=== PATIENT | female | born 1980 | race Caucasian/White ===

== ENCOUNTER 2022-04-26 08:37 | Emergency (ER) | payer BC, SELFPAY ==
--- NOTE | 2022-04-26 08:44 | ED.URI ---
HPI - URI/Sore Throat General Chief Complaint: Upper Respiratory Infection Stated Complaint: Sore throat Time Seen by Provider: 04/26/22 08:51 Source: patient Mode of arrival: ambulatory Limitations: no limitations History of Present Illness HPI Narrative: Ms. Freedman is a 42-year-old female patient presenting to the clinic today with sore throat x1 week. She is also reports that she is has a nonproductive cough and nasal congestion. She reports that she feels as though her uvula swelling she denies any fever or chills but has had some hot flashes. She did not test herself for COVID. No known exposure to anybody with COVID, strep, or influenza Related Data Home Medications Medication Instructions Recorded Confirmed dextroamphetamine-amphetamine ER 20 mg PO DAILY 04/26/22 04/26/22 20 mg 24hr capsule,extend release fluticasone propionate 110 1 puff inhalation DAILY 04/26/22 04/26/22 mcg/actuation HFA aerosol inhaler (Flovent HFA) lamotrigine 25 mg tablet 25 mg PO DAILY 04/26/22 04/26/22 quetiapine 300 mg tablet 300 mg PO DAILY 04/26/22 04/26/22 Allergies Allergy/AdvReac Type Severity Reaction Status Date / Time morphine Allergy Itching Verified 04/26/22 09:01 acetaminophen [From Vicodin] AdvReac Itching Verified 04/26/22 09:01 hydrocodone [From Vicodin] AdvReac Itching Verified 04/26/22 09:01 Review of Systems Review of Systems: Pertinent positives per HPI. Patient denies any fever, chills, rash, headache, visual changes, dizziness, shortness of breath, chest pain, palpitations, nausea, vomiting, diarrhea, constipation, abdominal pain, or any urinary issues. PMFSH Comments At the time of my signature, I reviewed and agree with the nursing past medical, surgical, social, and family history. There is no relevant family history pertinent to the patient complaint. Exam Narrative: General: Well-developed, well nourished, in no apparent distress Head: Normocephalic, atraumatic Eyes: Pupils equally round and reactive to light bilaterally, EOM intact, sclera and conjunctive clear, no discharge, lids normal Ears: TMs intact and clear, ear canals clear, no drainage, grossly hearing normal. Nose: Nares patent, clear nasal discharge, moderate inflammation, no sinus tenderness. Mouth: Oropharynx without lesions or masses, good dentition, MMM. Oropharynx red with uvula swelling Neck: Supple, trachea midline, no enlargement of anterior or posterior cervical nodes, no thyroid masses or goiter palpable. Cardio: Regular rate and rhythm, s1 and s2 normal, no murmur appreciated. Resp: Clear to auscultation bilaterally anteriorly and posteriorly, no rhonchi, rales, wheezing or rubs Course Course Emergency Course: Portions of this record may have been created with voice recognition software. Level of Care: Express Care Visit Vital Signs Vital signs: Vital signs reviewed MDM - URI/Sore Throat MDM Narrative Medical decision making narrative: At the time of visit patient is resting comfortably on the exam table. Strep screen was obtained and was negative in the clinic. I suspect the patient has URI, postnasal drip, pharyngitis. I will put her on a prescription for some prednisone to help with the inflammation and the congestion. Supportive measures were discussed with the patient she voiced understanding of discharge instructions and agrees to the treatment plan. Differential Diagnosis Differential diagnosis: Likely upper respiratory infection, otitis media, sinusitis, viral infection, bronchitis, influenza, pharyngitis and other (COVID) Discharge Plan Discharge Clinical Impression: Pharyngitis, PND (post-nasal drip), Upper respiratory infection Patient Disposition: Home, Self-Care Condition: Stable Instructions: Antibiotic Form, Pharyngitis (ED), Cold Symptoms (ED), Postnasal Drip (DC) Additional Instructions: Strep screen negative in the clinic. We will send for culture. Take prescription medica
[2022-04-26 08:51] VITALS: BP 130/90; PULSE 100; RESP 18; TEMP 36.6; O2SAT 99
[2022-04-26 08:58] VITALS: BP 130/90; PULSE 100; RESP 18; TEMP 36.6; O2SAT 99
== END 2022-04-26 09:10 | disposition home or self-care (01) ==
PROVIDERS: Emergency Provider Nurse Practitioner Family; PCP Physician Assistant
DX: J02.9 Acute pharyngitis, unspecified (principal); R09.82 Postnasal drip; J06.9 Acute upper respiratory infection, unspecified; F31.9 Bipolar disorder, unspecified
CPT/HCPCS: 87081; 87880; 99213; G0463

== ENCOUNTER 2023-05-02 06:46 | Inpatient (IN) | payer BC, SELFPAY ==
[2023-05-02] VITALS (20 sets, daily range): BP systolic 75–122; BP diastolic 54–91; PULSE 98–110; RESP 12–26; TEMP 35.9–36.6; O2SAT 92–98
--- NOTE | ~2023-05-02 | US_ITS ---
EXAMINATION: US renal BI DATE: 05/05/2023 12:03 INDICATION: Acute kidney injury. TECHNIQUE: Multiple ultrasound grayscale images of the kidneys were obtained. COMPARISON: CT 05/02/2023 FINDINGS: The right kidney measures 10.6 x 4.1 x 4.6 cm. The left kidney measures 8.4 x 5.8 x 6.06 cm. The kid neys demonstrate normal parenchymal echogenicity. There is no hydronephrosis. The bladder is decompre ssed by a Pizano catheter. There is a small volume of ascites. IMPRESSION: 1. Mild atrophy of left kidney. No hydronephrosis. 2. Small volume of ascites. Reviewed, dictated and finalized at location A.
--- NOTE | ~2023-05-02 | XR_ITS ---
EXAMINATION: XR chest 1V portable DATE: 05/03/2023 04:14 INDICATION: Intubation. COVID-19 positive. TECHNIQUE: A single frontal view of the chest was obtained. COMPARISON: Chest single view 05/02/2023 FINDINGS: There are airspace and interstitial opacities throughout the lungs bilaterally. No pleural effusion or pneumothorax. The heart size is normal. The endotracheal tube tip is in the right mainste m bronchus. The nasogastric tube tip is in the stomach. IMPRESSION: 1. Stable diffuse lung disease, consistent with pulmonary edema versus atypical pneumonia. 2. Endotracheal tube tip in the right mainstem bronchus. The tube has since been retracted. Reviewed, dictated and finalized at location A. IMPRESSION: 1. Stable diffuse lung disease, consistent with pulmonary edema versus atypical pneumonia. 2. Endotracheal tube tip in the right mainstem bronchus. The tube has since bee n retracted.
--- NOTE | ~2023-05-02 | XR_ITS ---
EXAMINATION: XR chest 1V portable DATE: 05/03/2023 20:43 INDICATION: COVID. Desaturations. Unresponsive. TECHNIQUE: frontal view of the chest was obtained. COMPARISON: Chest radiograph dated 05/03/2023 FINDINGS: Endotracheal tube tip 2.7 cm above the anglea. Nasogastric tube extends below the left hemidiaphragm with distal tip collimated off the study. Left internal jugular central venous catheter with distal tip in the region of the brachiocephalic vein. Increasing density of the prior diffuse groundglass opacities with perihilar air bronchograms. No pne umothorax. Small pleural effusions are not excludable. Heart size is normal. IMPRESSION: 1. Increasing diffuse bilateral lung disease which could represent pneumonia or moderate to severe pu lmonary edema. Superimposed small bilateral pleural effusions are also not excludable. Reviewed, dictated and finalized at location A. IMPRESSION: 1. Increasing diffuse bilateral lung disease which could represent pneumonia or moderate to severe pulmonary edema. Superimposed small bilateral pleural effus ions are also not excludable.
--- NOTE | ~2023-05-02 | CT_ITS ---
EXAMINATION: CT brain wo con DATE: 05/02/2023 11:31 INDICATION: Altered mental status. TECHNIQUE: Computed tomography (CT) of the head was performed without intravenous contrast. The mA wa s adjusted according to patient size. Iterative reconstruction technique was employed. The dose-lengt h product was 983.67 mGy-cm. COMPARISON: None FINDINGS: There is no intracranial hemorrhage, acute infarction, or abnormal intracranial mass lesion . The ventricles are normal in size. The orbits are normal. There is mucosal thickening in the parana luca sinuses. There is a trace right mastoid effusion. IMPRESSION: 1. Normal brain. Reviewed, dictated and finalized at location A. IMPRESSION: 1. Normal brain.
--- NOTE | ~2023-05-02 | XR_ITS ---
EXAMINATION: XR chest port-a-cath/central DATE: 05/03/2023 06:32 INDICATION: Central line placement. TECHNIQUE: A single frontal view of the chest was obtained. COMPARISON: Chest single view at 3:41 AM, chest CT 05/02/2023 FINDINGS: There are airspace opacities and septal thickening throughout the lungs bilaterally. No ple ural effusion or pneumothorax. The heart size is normal. The endotracheal tube tip is 1.4 cm above ca selena. The nasogastric tube tip is in the stomach. A left internal jugular central venous catheter is seen with tip in the left brachiocephalic vein. IMPRESSION: 1. Central line tip in the left brachiocephalic vein. 2. Stable diffuse lung disease, consistent with pulmonary edema versus atypical pneumonia. Reviewed, dictated and finalized at location A.
--- NOTE | ~2023-05-02 | CT_ITS ---
EXAMINATION: CTA chest PE abdomen pel DATE: 05/02/2023 09:18 INDICATION: Shortness of breath. TECHNIQUE: Computed tomography angiography (CTA) of the chest was performed with 100 mL Omnipaque-350 intravenous contrast timed to evaluate the pulmonary arteries. Coronal maximum intensity projection 3D-reconstructions were created by the technologist. Computed tomography (CT) of the abdomen and pelv is was performed with intravenous contrast. Automated exposure control and iterative reconstruction t echnique were employed. The dose-length product was 553.22 mGy-cm. COMPARISON: None. FINDINGS: CTA chest: There are patchy patchy groundglass opacities and crazy paving involving all lobes. A calc ified left lung nodule and calcified paraesophageal lymph node are consistent with old granulomatous disease. There is mild emphysema. No pleural effusion. The heart size is normal. No pericardial effus ion. There is no pulmonary embolus. There is mild thoracic spondylosis. There is an old healed fractu re of the sternum. CT abdomen and pelvis: There is diffuse hepatic steatosis. There is diffuse heterogeneity of liver at tenuation. The gallbladder is normal in size. Gallbladder wall thickening is likely secondary to inte rstitial edema. The spleen is normal. Paraesophageal varices are noted. There are calcifications in t he pancreas, consistent with chronic pancreatitis. The adrenal glands and kidneys are normal. There i s wall thickening of small bowel and colon. There is a moderate volume of ascites. Body wall edema is noted. There is mild lumbar spondylosis. IMPRESSION: 1. Diffuse lung disease, likely moderate pulmonary edema. Atypical pneumonia is less likely. 2. Moderate volume of ascites. 3. Wall thickening of small and large bowel, likely interstitial edema. Enterocolitis is less likely. 4. Diffuse hepatic steatosis. Heterogeneity of the liver is suspicious for cirrhosis. 5. Paraesophageal varices. 6. No pulmonary embolus. Reviewed, dictated and finalized at location A. IMPRESSION: 1. Diffuse lung disease, likely moderate pulmonary edema. Atypical pneumonia is less likely. 2. Moderate volume of ascites. 3. Wall thickening of small and large bowel, likely interstitial edema. Enteroc olitis is less likely. 4. Diffuse hepatic steatosis. Heterogeneity of the liver is suspicious for cirr hosis. 5. Paraesophageal varices. 6. No pulmonary embolus.
--- NOTE | ~2023-05-02 | XR_ITS ---
EXAMINATION: XR chest 1V portable DATE: 05/04/2023 05:01 INDICATION: Respiratory failure. TECHNIQUE: A single frontal view of the chest was obtained. COMPARISON: Chest single view 05/03/2023 FINDINGS: There are airspace opacities throughout the lungs bilaterally. There is a small left pleura l effusion. No pneumothorax. The heart size is obscured. The endotracheal tube tip is 2.6 cm above th e angela. The nasogastric tube tip is in the stomach. A left internal jugular central venous catheter is seen with tip in the left brachiocephalic vein. IMPRESSION: 1. Worsened diffuse lung disease, consistent with pulmonary edema versus pneumonia versus acute respi ratory distress syndrome (ARDS). 2. Stable small left pleural effusion. Reviewed, dictated and finalized at location A. IMPRESSION: 1. Worsened diffuse lung disease, consistent with pulmonary edema versus pneumo velia versus acute respiratory distress syndrome (ARDS). 2. Stable small left pleural effusion.
--- NOTE | ~2023-05-02 | XR_ITS ---
EXAMINATION: XR chest 1V portable DATE: 05/05/2023 05:54 INDICATION: Respiratory failure. TECHNIQUE: A single frontal view of the chest was obtained. COMPARISON: Chest single view 05/04/2023 FINDINGS: There are airspace opacities throughout the lungs bilaterally with air bronchograms. There are small pleural effusions. No pneumothorax. The heart size is obscured. The nasogastric tube tip is in the stomach. The endotracheal tube tip is 2.8 cm above the angela. A left internal jugular centra l venous catheter is seen with tip in the left brachiocephalic vein. IMPRESSION: 1. Severe diffuse lung disease with worsening at the lung apices, consistent with pulmonary edema tom talia pneumonia versus acute respiratory distress syndrome (ARDS). 2. Worsened small pleural effusions. Reviewed, dictated and finalized at location A. IMPRESSION: 1. Severe diffuse lung disease with worsening at the lung apices, consistent wi th pulmonary edema versus pneumonia versus acute respiratory distress syndrome (ARDS). 2. Worsened small pleural effusions.
--- NOTE | ~2023-05-02 | XR_ITS ---
EXAMINATION: XR chest 1V portable DATE: 05/02/2023 07:34 INDICATION: Shortness of breath. TECHNIQUE: A single frontal view of the chest was obtained. COMPARISON: None. FINDINGS: There is a diffuse interstitial pattern in the lungs. There are airspace opacities in all l eft lung zones. No pleural effusion or pneumothorax. The heart size is normal. IMPRESSION: 1. Diffuse lung disease, consistent with pulmonary edema versus pneumonia. Reviewed, dictated and finalized at location A.
--- NOTE | 2023-05-02 06:52 | ECG_ITS ---
Measurements Intervals [place] Rate: 108 P: 80 RI: 165 QRS: 93 QRSD: 77 T: 27 QT: 247 QTc: 331 Interpretive Statements SINUS TACHYCARDIA BORDERLINE RIGHT AXIS DEVIATION [QRS AXIS > 90] NONSPECIFIC T-WAVE ABNORMALITY ABNORMAL RHYTHM ECG NO PREVIOUS ECG AVAILABLE FOR COMPARISON Electronically Signed On 05-02-2023 7:18:21 CDT by Cory Vega M.D.
--- NOTE | 2023-05-02 06:57 | ED.SOB ---
HPI - SOB/Dyspnea General Chief Complaint: Shortness of Breath/Dyspnea Stated Complaint: cough Time Seen by Provider: 05/02/23 06:51 Source: patient Limitations: intoxication History of Present Illness HPI Narrative: Patient is a 43-year-old female present to the emergency department for multiple complaints. Patient states she took some psychedelic mushrooms earlier today she in addition she smokes some marijuana and overall she has been feeling anxious which she has chronic anxiety noting that she saw her sister recently and her sister told her that her stomach appeared to be more protuberant but has been progressively getting to the point over days she has a history of needing a drain to her abdomen many years ago but has not had any tap since then and overall she is feeling more short of breath over the past approximately 1 week. Patient denies any fevers, abdominal pain, diarrhea, constipation, melena, medic easier, dysuria, hematuria, urinary frequency, urinary urgency, cough, chest pain, numbness, weakness, recent injuries, recent illness, rash. Patient notes that she also uses methamphetamine occasionally via smoking and denies any history of IV drug use and her last use was approximately 3 days ago. Patient notes that she does have a history of alcohol use but did not drink any alcohol yesterday as she knew that she was going to take shrooms today. Patient has not noticed anything making her shortness of breath better or worse. Patient admits to some mild associated anxiety. Patient denies visual hallucinations, auditory hallucinations, tactile hallucinations. Patient denies suicidal ideations or homicidal ideations. Patient notes that she took the illicit drugs for pleasure. Patient admits to a history of seeing a cardiac specialist when she had her abdomen drained but she has not seen a cardiac specialist in many years. MD elicited complaint: shortness of breath Timing: progressively worsening Severity: mild Relieving factors: nothing Treatment prior to arrival: none Related Data Home Medications Medication Instructions Recorded Confirmed dextroamphetamine-amphetamine ER 20 mg PO DAILY 04/26/22 05/02/23 20 mg 24hr capsule,extend release quetiapine 300 mg tablet 400 mg PO HS 04/26/22 05/02/23 hydroxyzine pamoate 50 mg capsule 50 mg PO TID PRN Anxiety 05/02/23 05/02/23 lamotrigine 150 mg tablet 150 mg PO DAILY 05/02/23 05/02/23 sertraline 100 mg tablet 100 mg PO DAILY 05/02/23 05/02/23 Allergies Allergy/AdvReac Type Severity Reaction Status Date / Time morphine Allergy Itching Verified 04/26/22 09:01 acetaminophen [From Vicodin] AdvReac Itching Verified 04/26/22 09:01 hydrocodone [From Vicodin] AdvReac Itching Verified 04/26/22 09:01 PMFSH Past Medical History Medical History (Updated 05/05/23 @ 12:18 by Shelly Sifuentes MD) Alcoholism Chronic pancreatitis Cirrhosis COVID Polysubstance abuse Surgical History Surgical History (Updated 05/02/23 @ 17:17 by Briana Boykin NP) H/O Whipple procedure Family History Family History (Updated 05/02/23 @ 17:20 by Briana Boykin NP) Sibling Chronic pancreatitis Father Hypertension Social History Social History (Updated 05/02/23 @ 17:19 by Briana Boykin NP) Social History: She is single. Is reported that she works for [employer]. Marissa Mckay is her sister listed as her durable poa. She does not have any children and has never been . She lives with her sister Day. According to her sister Day the patient may have 1 drink a day. She did not quantify the size of the drink. Code status full code Smoking status: Unknown if ever smoked Alcohol intake: current Drinks per week: 1 Substance use: current Substance use type: marijuana Spiritual care concerns: No Comments Patient admits to occasional tobacco use. Patient admits to occasional alcohol consumption with a history of
[2023-05-02] MEDS: LACTATED RINGERS 1,000 ML 999 ML IV CONT (07:36)
[2023-05-02] MEDS: LORazepam INJ (*CRX) 2 MG/ML VIAL 0.5 MG IV PUSH (07:36)
[2023-05-02] MEDS: ASPIRIN 325 MG TABLET PO (07:36)
[2023-05-02 07:51] LABS: Basophils Absolute Auto 0.1 K/mm3 (0.0-0.1); Basophils Percent Auto 0.3 % (0.2-1.2); Eosinophils Percent Auto 0.1 % (0-4.4); Hematocrit 24.3 % (37.0-47.0); Hemoglobin 8.3 g/dL (12.0-15.0); Immature Granulocyte Absolute 0.16 K/mm3 (0.00-0.031); Immature Granulocyte Percent A 0.7 % (0-0.5); Immature Platelet Fraction Pct 11.7 % (0.9-11.2); Lymphocytes Absolute Auto 3.58 K/mm3 (0.9-3.2); Lymphocytes Percent Auto 16.7 % (18.3-44.2); Mean Corpuscular HGB Conc 34.2 g/dl (32-36); Mean Corpuscular Hemoglobin 33.6 pg (26-34); Mean Corpuscular Volume 98.4 fl (80-100); Mean Platelet Volume 13.1 fl (7.4-10.4); Monocytes Percent Auto 9.5 % (2.6-8.5); Neutrophils Absolute Auto 15.6 K/mm3 (1.3-6.7); Neutrophils Percent Auto 72.7 % (45.5-73.1); Platelet Count Result 87 k/mm3 (150-375); Red Blood Count 2.47 M/mm3 (4.2-5.4); Red Cell Distribution Width 17.2 % (11.5-14.5); White Blood Count 21.5 K/mm3 (4.5-10.0)
[2023-05-02 08:00] LABS: INR 1.7
[2023-05-02 08:01] LABS: Partial Thromboplastin Time 38.1 SECONDS (22.3-36.8)
[2023-05-02 08:05] LABS: Anisocytosis 1+ (NORMAL); Platelet Estimate Decreased (Adequate)
[2023-05-02 08:06] LABS: D Dimer 3.33 ug/mL (<0.48); Schistocytes None Seen (NORMAL); Target Cells 1+ (NORMAL)
[2023-05-02 08:07] LABS: Alanine Aminotransferase 33 U/L (6-35); Albumin Level 2.3 g/dL (3.5-5.1); Alkaline Phosphatase 151 U/L (38-126); Anion Gap 8 mmol/L (8-16); Aspartate Amino Transferase 70 U/L (14-36); Bilirubin,Total 2.1 mg/dL (0.2-1.3); Blood Urea Nitrogen 11 mg/dL (7-17); Calcium 7.4 mg/dL (8.4-10.2); Carbon Dioxide 23 mmol/L (22-30); Chloride 94 mmol/L (98-107); Estimated CRCL calculation 63 ml/min; Estimated Glomerular Filt Rate > 60; Glucose 107 mg/dL (65-110); Potassium 3.7 mmol/L (3.4-5.0); Sodium 125 mmol/L (137-145)
[2023-05-02 08:18] LABS: NT Pro B Type Natriuretic Pept 1170 pg/mL (19.9-100); Troponin I < 0.012 ng/mL (0.000-0.034)
[2023-05-02 09:14] LABS: Ammonia 63 umol/L (9-30); Lactic Acid Reflex 3.8 mmol/L (0.7-2.0)
[2023-05-02] MEDS: AZITHROMYCIN 500 MG/NS 250 ML 500 MG/250 ML BAG 250 MG IVPB (09:36)
--- NOTE | 2023-05-02 09:37 | PC.NURSE ---
pt mumbling incoherently on stretcher. when asked who she was talking to pt responds my sister . pt informed that she is alone in room.
[2023-05-02 09:55] LABS: CRP 6.3 mg/dL (<1.0)
[2023-05-02 11:18] LABS: Acetaminophen < 10 ug/mL (10-30); Salicylate < 1.0 mg/dL (2-20)
[2023-05-02 11:51] LABS: Influenza A QL RT-PCR Negative (Negative); Influenza B QL RT-PCR Negative (Negative); SARS-CoV-2 RNA PCR Positive (Negative)
[2023-05-02 11:52] LABS: Appearance Urine Cloudy (Clear); Bacteria Urine 4+ /hpf; Bilirubin Urine 1+ (Negative); Blood Urine Negative (Negative); Color Urine Dark Yellow (Yellow); Glucose Urine UA Negative (Negative); Ketones Urine Negative (Negative); Leukocyte Esterase Ur Trace LEU/UL (Negative); Need Manual Microscopic Reviewed; Nitrate Urine Negative (Negative); Protein Urine Negative (Negative); Specific Grav Ur 1.011 (1.001-1.035); Squamous Epithelial Cell Urine Few /hpf (Few); WBC Urine 0-5 /hpf
[2023-05-02 11:59] LABS: Reflex Lactic Acid Yes or No Add Lactic
[2023-05-02 12:04] LABS: Add Urine Microscopic? YES
[2023-05-02] MEDS: LACTATED RINGERS 500 ML 999 ML IV CONT (12:56)
[2023-05-02] MEDS: metroNIDAZOLE 500 MG/ISO 100ML 500 MG/100 ML BAG 100 MG IVPB ×2 (12:57→17:12)
--- NOTE | 2023-05-02 14:27 | PM.IMHP ---
H&P: HPI History of Present Illness Date/Time: 05/02/23 14:27 Chief Complaint: Shortness of breath Narrative: This is a 43-year-old female patient who appears older than stated age. The patient is rolling around in the bed calcium and is not answering questions for me. The patient told the ER that she took some psychedelics mushrooms earlier today she has been feeling anxious lately. The patient has been feeling more short of breath over the last week. She denied any fever chills or any nausea vomiting or diarrhea. She denied any urinary symptoms. No chest pain or palpitations. The patient is noted to use methamphetamines via smoking and history of IV drug use and her last usage was approximately 3 days ago. She also has a history of alcoholism. She did drink today because she knew she was going to take some mushrooms today. The patient has been coughing up thick sputum. She denies any visual hallucinations or auditory hallucinations or tactile hallucinations. She denies any suicidal ideations. Patient was noted to take these illicit drugs for pleasure. The patient has a history of having a paracentesis in the past however she has not seen a GI specialist in many years. The patient is having difficulty focusing on answering my questions. The patient requested that I get out of her room and turned off the lights. Her white count was found to be 21.5 H&H is 8.3 and 24.3. Platelet count is 87. Her sodium is 125. Lactic acid 3.8. Calcium 7.4. Ammonia level 63. C reactive protein 6.3. BNP 1170. Albumin 2.3. Urine is cloudy with 6-10 rbc's and 4+ bacteria. Solicited aids were less than 1.0 and Tylenol level less than 10. Influenza A/B urine negative but she is positive for COVID. The patient was given Rocephin azithromycin and Flagyl. Head CT was read as normal brain. Chest abdominal pelvis CT was read as the following. Diffuse lung disease, likely moderate pulmonary edema. Atypical pneumonia is less likely. 2. Moderate volume of ascites. 3. Wall thickening of small and large bowel, likely interstitial edema. Enterocolitis is less likely. 4. Diffuse hepatic steatosis. Heterogeneity of the liver is suspicious for cirrhosis. 5. Paraesophageal varices. 6. No pulmonary embolus. The patient is being admitted to observation status on the date of service of 05/02/2023 Review of Systems Review of Systems: All systems reviewed & are unremarkable except as noted in HPI and below Constitutional: Constitutional: Reports as per HPI and Reports no additional constitutional complaints Eyes: Eyes: Reports as per HPI and Reports no additional eye complaints ENT: Reports system reviewed and no additional complaints, except as documented and Reports Normal hearing present Cardiovascular: Cardiovascular: Reports no additional cardiovascular complaints Respiratory: Respiratory: Reports no additional respiratory complaints and Reports no additional respiratory complaints Gastrointestinal: Gastrointestinal: Reports as per HPI and Reports no additional gastrointestinal complaints Musculoskeletal: Musculoskeletal: Reports no additional musculoskeletal complaints Integumentary/Breasts: Skin/Breast: Reports system reviewed and no additional complaints, except as docu and Reports as per HPI Neurologic: Reports system reviewed and no additional complaints, except as documented, Reports as per HPI and Reports Normal hearing present Psychiatric: Psychiatric: Reports no additional psychiatric complaints and Reports as per HPI Endocrine: Endocrine: Reports no additional endocrine complaints Hematologic/Lymphatic: Hematologic/Lymphatic: Reports no additional hematologic/lymphatic complaints Allergic/Immunologic: Allergic/Immunologic: Reports no additional allergic/immunologic complaints [facility] Past Medical History Medical History (Updated 05/02/23 @ 17:17 by Briana Boykin NP) Alcoholism Chronic pancreatitis Cirrhosis COVID Polysubstance abuse
--- NOTE | 2023-05-02 16:19 | ADMGEN ---
This patient, Ledy Mckay, was admitted to IMU Room 231-01 @[id number]. Patient/family oriented to hospital policies and general routines including ID bracelet, bed and alarms, visiting hours, pain management, procedures, bathroom and other care routines, personal items, smoking policy, room service/diet, and visiting hours. Information on how to activate the Rapid Response Team has been discussed. Patient/Family are encouraged to report perceived risks to care and to ask questions if they do not understand what they are told or what they should do.
[2023-05-02] MEDS: LORazepam INJ (*CRX) 2 MG/ML VIAL IV PUSH (17:09)
[2023-05-02] MEDS: DEXAMETHASONE SOD PHOS INJ 4 MG/ML VIAL 6 MG IV PUSH (17:10)
[2023-05-02] MEDS: SODIUM CHLORIDE 0.9% IV 1,000 ML 100 ML IV CONT (17:12)
[2023-05-02] MEDS: LACTULOSE ENEMA 200 GM/1,000 ML ENEMA RECTAL (17:45)
[2023-05-02 18:09] LABS: Alveolar/Arterial O2 Gradient 259.7 mmHg; Base Excess ABG -0.7 mEq/l (+/-2.0); Fractional Inspired Oxygen 52 %; HCO3 ABG 23.6 mEq/l (22.0-26.0); Oxygen Content ABG 12.3 %vol (16.0-22.0); Oxygen Saturation ABG 94.2 % (95.0-100.0); Oxyhemoglobin 91.4 % THb (90.0-100.0); PCO2 ABG 37.6 mmHg (35.0-45.0); PO2 FiO2 Ratio Arterial Blood 1.33 %; Total Hemoglobin 9.5 g/dL (12.0-18.0); pH ABG 7.416 (7.350-7.450)
[2023-05-02 18:10] LABS: Device NASAL CANNULA; Modified Allen's Test Pass; Site Drawn LEFT RADIAL
[2023-05-02 18:22] LABS: Glucose Point of Care 115 mg/dl (65-105)
[2023-05-02 18:30] LABS: Albumin Level 1.9 g/dL (3.5-5.1)
[2023-05-02 18:33] LABS: Lactic Acid 2.6 mmol/L (0.7-2.0)
[2023-05-02 18:40] LABS: Barbiturate Screen Urine Negative (Negative); Benzodiazepines Screen Urine Negative (Negative)
[2023-05-02 18:41] LABS: Cannabinoid Screen Urine Positive (Negative); Cocaine Screen Urine Negative (Negative); Methadone Screen Urine Negative (Negative); Opiate Screen Urine Negative (Negative); Phencyclidine Screen Urine Negative (Negative)
[2023-05-02 18:58] LABS: Amphetamine Screen Urine Positive (Negative)
[2023-05-02 20:32] LABS: Sodium Urine Random < 5 meq/L
[2023-05-02 20:49] LABS: Lipase < 10 U/L (23-300)
--- NOTE | 2023-05-02 23:26 | PC.NURSE ---
Patient moaning, almost grunting not taking breaths in. pulse ox dropping, respiratory therapy called. Airvo started per RT. pulse ox 90 to 100%. Patient restless when care given. not opening her eyes, slurred, garbled yelling and cussing without moving her mouth. pupils equal, little reaction to light. no accomadation. Spoke with Briana Boykin regarding mental status, respiratory status, medications, etc.
[2023-05-02 23:54] LABS: Glucose Point of Care 102 mg/dl (65-105)
[2023-05-03] VITALS (29 sets, daily range): BP systolic 69–111; BP diastolic 46–70; PULSE 87–111; RESP 18–33; TEMP 35.8–36.6; O2SAT 86–100; BMI 20.9
[2023-05-03] MEDS: metroNIDAZOLE 500 MG/ISO 100ML 500 MG/100 ML BAG 100 MG IVPB ×2 (00:36→07:00)
[2023-05-03] MEDS: SUCCINYLCHOLINE CHLORIDE 20 MG/ML 10 ML VIAL 50 MG IV PUSH (03:21)
[2023-05-03] MEDS: ETOMIDATE 20 MG/10 ML AMPUL 15 MG IV PUSH (03:22)
[2023-05-03] MEDS: ETOMIDATE 20 MG/10 ML AMPUL 5 MG IV PUSH (03:25)
[2023-05-03] MEDS: MIDAZOLAM 100MG/NS 100ML(*CRX) 100 MG/100 ML BAG IV CONT (03:40)
[2023-05-03] MEDS: FENTANYL 2,500MCG/NS250ML(*CRX 2,500 MCG/250 ML BAG 7.5 MCG IV CONT (03:40)
--- NOTE | 2023-05-03 04:00 | PC.NURSE ---
Patient's oxygen saturation dropped. patient fighting restraints, cussing, spitting. Respiratory therapy called. Dr. Wei notified and came to see patient. Received orders to move to ICU. Transferred to ICU room 11. Verbal report given at bedside to Michelle CAMPBELL. Patient's sibling Marissa Mckay notified. Marissa states she is in the ED here at [place] currently and will call back after her blood is drawn.
--- NOTE | 2023-05-03 04:10 | PC.NURSE ---
Verbal consent for Central line placement received from Marissa Mckay. Verified by Ariella Montanez RN
--- NOTE | 2023-05-03 05:45 | P.PCNBED_ITS ---
Procedures Central Line Placement Left IJ: Central Line Date: 05/03/23 Central Line Time: 05:15 Performed Emergently - Given emergent patient condition, temporal constraints may have precluded informed consent.: Yes Time Out Performed: Yes Patient Position: other (Vascular) Patient placed on monitor/pulse ox: Yes Provider Prep: mask, sterile gown, sterile gloves, Max. sterile barrier precautions, cap and hand hygiene with conventional soap/water or alcohol based hand rub Central line prep: 2% Chlorhexidine scrub Sterile US Technique with sterile gel/sterile probe covers: Yes Central line lumen inserted: triple Japanese: 7 Length (cm): 16 Depth of Insertion (cm): 14 Post Procedure: sutured in place, good blood return, all ports aspirated, flushed, capped, transparent dressing, securement product and aseptic technique maintained throughout procedure Post procedure x-ray: tip of catheter in good position and no pneumothorax seen Patient tolerated procedure: well Complications: other Additional comments: The patient's ventilator circuit did get knocked loose as we were finishing the procedure. The patient had to be bagged for 2 minutes to bring oxygen level back up. The patient had desatted down to 82%. Patient's oxygen saturations improved after 2 minutes of assisted respiration Intubation Intubation Date: 05/03/23 Intubation Time: 03:20 Consent: Performed emergently Sedative: etomidate Mg given: 20 Paralytic: succinylcholine Mg given: 50 Laryngoscope: fiber optic video scope ET tube size: 7.5 Tube secured depth (cm): 22 Tube secured location: lips Tube placement confirmation: visualized tube passing through cords, equal breath sounds bilaterally, no breath sounds over epigastrium and confirmation by capnometry Patient tolerated procedure: well Additional comments: The patient did become profoundly hypoxic briefly during intubation. Patient's oxygen saturations improved significantly after intubation and required total of 3 minutes of assisted respirations to recover back above 80%. Post intubation chest x-ray initially was reviewed and patient's ET tube was right at the right mainstem bronchus with pulled a 2 2 back all radiology was still in the room and they were repeated x-ray and ET tube was 1 cm above the angela. We did pulled the ET tube back another 1 cm but did not repeat the x-ray at that time. NG placement was confirmed with KUB. Patient did have bilateral infiltrates on x- ray appeared to be fluid overloaded
[2023-05-03] MEDS: CENTRAL LINE FLUSH 10 ML IV PUSH ×4 (06:00→21:31)
--- NOTE | 2023-05-03 06:16 | P.RRN_ITS ---
Critical Care Event Note Summary Narrative: Due to a high probability of clinically significant, life threatening deterioration, the patient required my highest level of preparedness to intervene emergently and I personally spent this critical care time directly and personally managing the patient. This critical care time included obtaining a history; examining the patient; pulse oximetry; ordering and review of studies; arranging urgent treatment with development of a management plan; evaluation of patient's response to treatment; frequent reassessment; and discussions with other providers. It was exclusive of separately billable procedures and treating other patients and teaching time. Please see Assessment and Plan section and the rest of the note for further information on patient assessment and treatment.
--- NOTE | 2023-05-03 06:16 | PM.CCN ---
Critical Care Event Note Summary Code activated: No Narrative: I was on the floor evaluating another patient when this patient suddenly dropped her oxygen saturations down into the 60s. The patient was known to have COVID and had just been admitted earlier in the day. She had a rapidly escalating oxygen requirement throughout the afternoon and evening. I arrived to the room the patient was on 50 L at 80% on Airvo. Her FiO2 was increased to 100% and oxygen saturations were still in the mid to upper 80s. The patient was having a chronic thing respirations. She was tachypneic with accessory muscle use. The patient was altered and encephalopathic. A felt the patient would not billed to protect her airway if she was placed on BiPAP. Subsequently patient was transferred to the ICU for intubation. The patient was satting 78% just prior to intubation. With sedation medications administered the patient's oxygen saturation rapidly dropped. The patient's oxygen saturation did briefly dropped into the 30s but returned to normal intubation and use of PEEP bowel on the bag valve mask. The patient was initially placed on the ventilator but had escalating requirements for PEEP. Patient's ventilatory requirements did improve with the head of the bed completely upright and repositioning overhead. Stat chest x-ray demonstrated ET tube was just at the right mainstem bronchus ET tube was pulled back 2 cm and repeat x-ray demonstrated ET tube about 1 cm from the angela ET tube was pulled back another cm but chest x-ray was not repeated at that time. The patient only had a small IV in place. Subsequently I did place an emergent left IJ. the patient did have some mildly low blood pressures but I suspect this was due to increased sedation. I requested sedation be backed off. Given the patient's history of cirrhosis and x-ray concerning for some pulmonary edema I did give a dose of Lasix 40 mg and stop the patient's IV fluids. The patient is on Decadron for COVID. She had been on antibiotics with Rocephin azithromycin and Flagyl. I discussed the patient's case with the judge and antibiotics were switched to Zosyn and azithromycin and Flagyl were continued. The patient did have hyperammonemia and received a lactulose enema on admission. Will repeat ammonia level in a.m.. ABG post intubation was normal pH and FiO2. Vent settings are tidal volume of 320 and rate of 20 with a PEEP of 12. When we would drop the patient's PEEP to 10 patient had recurrent hypoxia down to 85%. Patient does have scheduled nebulizers ordered. Pizano catheter was placed due to immobility and need for monitoring strict I&O's. Patient is having good urine output following Lasix administration. Will obtain echocardiogram to further determine patient's cardiac structure and function. The patient does have cirrhosis and has marked ascites. Patient would benefit from paracentesis. Patient does have metabolic encephalopathy multifactorial due to drug use/alcohol use/withdrawal and hepatic encephalopathy as well as possible encephalopathy due to acute illness.. Gore Maker was consulted in care was turned over at the end of my shift. Assessment acute hypoxic respiratory requiring intubation Multifactorial metabolic encephalopathy COVID pneumonia Pulmonary edema Cirrhosis with ascites Sepsis Poor vascular access Plan: As discussed above 150 minute spent in critical care activities Due to a high probability of clinically significant, life threatening deterioration, the patient required my highest level of preparedness to intervene emergently and I personally spent this critical care time directly and personally managing the patient. This critical care time included obtaining a history; examining the patient; pulse oximetry; ordering and review of studies; arranging urgent treatment with development of a management plan; evaluation of patient's response to treatment; frequent reassessment; and
--- NOTE | 2023-05-03 06:18 | PC.NURSE ---
This patient, Ledy Mckay, was received from [ [phone]] on 05/03/23 at 0300. Patient/family oriented to unit policies and routines
[2023-05-03] MEDS: SODIUM CHLORIDE 0.9% IV 1,000 ML 100 ML IV CONT (07:00)
[2023-05-03 07:03] LABS: Basophils Absolute Auto 0.1 K/mm3 (0.0-0.1); Basophils Percent Auto 0.4 % (0.2-1.2); Hematocrit 27.2 % (37.0-47.0); Hemoglobin 9.2 g/dL (12.0-15.0); Immature Granulocyte Absolute 0.11 K/mm3 (0.00-0.031); Immature Platelet Fraction Pct 10.6 % (0.9-11.2); Mean Corpuscular HGB Conc 33.8 g/dl (32-36); Mean Corpuscular Hemoglobin 33.2 pg (26-34); Mean Corpuscular Volume 98.2 fl (80-100); Mean Platelet Volume 12.6 fl (7.4-10.4); Monocytes Absolute Auto 0.9 K/mm3 (0.1-0.6); Monocytes Percent Auto 8.2 % (2.6-8.5); Neutrophils Absolute Auto 9.2 K/mm3 (1.3-6.7); Neutrophils Percent Auto 82.4 % (45.5-73.1); Platelet Count Result 87 k/mm3 (150-375); Red Blood Count 2.77 M/mm3 (4.2-5.4); Red Cell Distribution Width 16.5 % (11.5-14.5); White Blood Count 11.2 K/mm3 (4.5-10.0)
[2023-05-03 07:18] LABS: Lactic Acid Reflex 3.1 mmol/L (0.7-2.0)
[2023-05-03 07:24] LABS: Alanine Aminotransferase 26 U/L (6-35); Albumin Level 1.8 g/dL (3.5-5.1); Alkaline Phosphatase 124 U/L (38-126); Anion Gap 4 mmol/L (8-16); Aspartate Amino Transferase 68 U/L (14-36); Bilirubin,Total 1.6 mg/dL (0.2-1.3); Blood Urea Nitrogen 11 mg/dL (7-17); Calcium 7.2 mg/dL (8.4-10.2); Carbon Dioxide 20 mmol/L (22-30); Chloride 101 mmol/L (98-107); Estimated CRCL calculation 56 ml/min; Estimated Glomerular Filt Rate > 60; Glucose 101 mg/dL (65-110); Magnesium 1.8 mg/dL (1.6-2.3); Potassium 4.3 mmol/L (3.4-5.0); Sodium 125 mmol/L (137-145)
[2023-05-03 07:37] LABS: Lactate Dehydrogenase 450 U/L (120-246)
[2023-05-03 07:44] LABS: Burr Cells 2+ (NORMAL); Platelet Estimate Decreased (Adequate); Schistocytes None Seen (NORMAL); Target Cells 1+ (NORMAL)
[2023-05-03 07:45] LABS: Anisocytosis 1+ (NORMAL)
[2023-05-03 08:05] LABS: HCO3 ABG 18.9 mEq/l (22.0-26.0); PCO2 ABG 35.2 mmHg (35.0-45.0); PO2 ABG 112.6 mmHg (80.0-100.0); pH ABG 7.348 (7.350-7.450)
[2023-05-03 08:06] LABS: Alveolar/Arterial O2 Gradient 645.3 mmHg; Oxygen Content ABG 14.6 %vol (16.0-22.0); Oxyhemoglobin 96.5 % THb (90.0-100.0); PO2 FiO2 Ratio Arterial Blood 1.13 %; Total Hemoglobin 10.6 g/dL (12.0-18.0)
[2023-05-03 08:07] LABS: Arterial Blood Gas PEEP 12 cmH2O; Arterial Blood Gas Tidal Volume 340 ml; Arterial Blood Gas Vent Mode CMV; Arterial Blood Gas Ventilator rate 20 /MIN; Device VENTILATOR; Fractional Inspired Oxygen 100 %
--- NOTE | 2023-05-03 09:04 | WPDCNINT ---
Assessment and Plan Assessment and plan (1) Acute respiratory failure: Code(s): J96.00 - Acute respiratory failure, unspecified whether with hypoxia or hypercapnia Status: Acute Assessment and Plan: Multifactorial acute respiratory failure secondary to combination of congestive heart failure and pulmonary edema, pneumonia which could be community-acquired or aspiration. Patient also tested positive for COVID Currently intubated and sedated ABG chest x-ray and ventilator settings reviewed Wean FiO2 to 80% and peep to 8 Empiric antibiotic coverage with Zosyn and azithromycin Dexamethasone for COVID-19 Blood and sputum culture Will start diuretics once blood pressures improved (2) Pneumonia: Code(s): J18.9 - Pneumonia, unspecified organism Status: Acute Assessment and Plan: See above (3) COVID: Code(s): U07.1 - COVID-19 Status: Acute Assessment and Plan: Patient has been started on dexamethasone. Multifactorial respiratory failure with imaging not suggestive of primary COVID-19 pneumonia Patient also has had symptoms going on for a while hence will hold treating with remdesivir or immunosuppressants at this time (4) Encephalopathy: Code(s): G93.40 - Encephalopathy, unspecified Status: Acute Assessment and Plan: Multifactorial toxic metabolic encephalopathy secondary to IV and other drug abuse. Elevated ammonia level Head CT was negative Currently sedated for mechanical ventilation Lactulose ordered for elevated ammonia (5) Increased ammonia level: Code(s): R79.89 - Other specified abnormal findings of blood chemistry Status: Acute Assessment and Plan: Lactulose ordered (6) Polysubstance abuse: Code(s): F19.10 - Other psychoactive substance abuse, uncomplicated Status: Acute Assessment and Plan: Currently sedated and intubated Patient has IV drug abuse history he admitted to recent IV drug use Will screen for hepatitis and HIV (7) Alcoholism: Code(s): F10.20 - Alcohol dependence, uncomplicated Status: Acute Assessment and Plan: Thiamine and folic acid ordered (8) Cirrhosis: Code(s): K74.60 - Unspecified cirrhosis of liver Status: Acute Assessment and Plan: History of cirrhosis from alcohol abuse which is consistent with imaging She also has hepatic encephalopathy Paracentesis ordered IV albumin ordered (9) Sepsis: Code(s): A41.9 - Sepsis, unspecified organism Status: Acute Assessment and Plan: Procalcitonin Blood cultures ordered and pending Check sputum culture Empiric treatment for COVID , pneumonia with coverage for both community-acquired and aspiration (10) Congestive heart failure: Code(s): I50.9 - Heart failure, unspecified Status: Acute Assessment and Plan: Check echocardiogram Blood pressure soft and will hold diuretics at this time (11) Coagulopathy: Code(s): D68.9 - Coagulation defect, unspecified Status: Acute Assessment and Plan: Vitamin K ordered. Will order 2 units of FFP as IR requesting INR 1.5 or below for paracentesis Hold anticoagulation and re-evaluate in 24 hours (12) Thrombocytopenia: Code(s): D69.6 - Thrombocytopenia, unspecified Status: Acute Assessment and Plan: Likely secondary to cirrhosis Monitor and transfuse if needed (13) Hyponatremia: Code(s): E87.1 - Hypo-osmolality and hyponatremia Status: Acute Assessment and Plan: Likely secondary to cirrhosis and CHF. Patient has received normal saline bolus. Hold further IV fluids Free water restriction and use crystalloids for infusion Monitor sodium level. I Will use hypertonic saline if worsens Consult nephrology (14) Ascites: Code(s): R18.8 - Other ascites Status: Acute Assessment and Plan: Diagnostic and therapeutic paracentesis ordered Plan DVT prophylaxis -
[2023-05-03] MEDS: ALBUMIN HUMAN 25% 25 GM/100 ML 100 ML IVPB ×3 (09:35→21:30)
[2023-05-03] MEDS: PHYTONADIONE INJ 10 MG/ML AMP IM (09:35)
[2023-05-03] MEDS: PANTOPRAZOLE SODIUM IV 40 MG VIAL IV PUSH (09:35)
[2023-05-03] MEDS: MINERAL OIL/WHITE PETROLATUM OINTMENT 1 APPLIC EACH EYE ×2 (09:36→21:31)
[2023-05-03] MEDS: LACTULOSE 20 GM/30 ML UDC FEED TUBE ×2 (09:36→18:32)
[2023-05-03] MEDS: CALCIUM GLUC 2,000 MG/NS 100ML 2,000 MG/100 ML BAG 100 MG IVPB (09:36)
[2023-05-03] MEDS: THIAMINE HCL 200 MG/2 ML VIAL 100 MG IV PUSH (09:36)
[2023-05-03] MEDS: DEXAMETHASONE SOD PHOS INJ 4 MG/ML VIAL 6 MG IV PUSH (09:36)
[2023-05-03] MEDS: SODIUM CHLORIDE 500 MG TABLET PO ×2 (09:37→18:32)
[2023-05-03] MEDS: PIPERACILLIN/TAZ 4.5G/NS 100ML 4.5 GM/100 ML BAG IVPB ×3 (09:37→18:32)
[2023-05-03] MEDS: AZITHROMYCIN 500 MG/NS 250 ML 500 MG/250 ML BAG 250 MG IVPB (09:49)
[2023-05-03 09:50] LABS: Anion Gap 3 mmol/L (8-16); Blood Urea Nitrogen 11 mg/dL (7-17); Calcium 7.2 mg/dL (8.4-10.2); Carbon Dioxide 22 mmol/L (22-30); Chloride 101 mmol/L (98-107); Estimated CRCL calculation 56 ml/min; Estimated Glomerular Filt Rate > 60; Glucose 94 mg/dL (65-110); Potassium 4.2 mmol/L (3.4-5.0); Sodium 126 mmol/L (137-145)
[2023-05-03 09:59] LABS: Reflex Lactic Acid Yes or No Add Lactic
[2023-05-03 10:13] LABS: Procalcitonin 36.6 ng/mL
[2023-05-03] MEDS: NOREPINEPHRINE 8 MG/D5W 250 ML 8 MG/250 ML BAG 9.38 MG IV CONT (10:27)
[2023-05-03 10:29] LABS: Hepatitis B Surface Antigen Negative (Negative)
[2023-05-03] MEDS: FOLIC ACID 1 MG/0.2 ML INJ IV PUSH (10:29)
[2023-05-03 10:34] LABS: HAV RESULT Negative (Negative); Hepatitis B Core IgM Result Negative (Negative)
[2023-05-03 10:46] LABS: Hepatitis C Virus Antibody Negative (Negative)
[2023-05-03 10:51] LABS: HIV 1/2 Ab P24 Ag Result Negative (Negative)
--- NOTE | 2023-05-03 10:58 | PM.IMPN ---
Progress Note: A&P Assessment and Plan (1) Acute respiratory failure: Code(s): J96.00 - Acute respiratory failure, unspecified whether with hypoxia or hypercapnia Status: Acute Assessment and Plan: Multifactorial acute respiratory failure secondary to combination of congestive heart failure and pulmonary edema, pneumonia which could be community-acquired or aspiration. Patient also tested positive for COVID Currently intubated and sedated Empiric antibiotic coverage with Zosyn and azithromycin Dexamethasone for COVID-19 Blood and sputum culture (2) Pneumonia: Code(s): J18.9 - Pneumonia, unspecified organism Status: Acute Assessment and Plan: See above (3) COVID: Code(s): U07.1 - COVID-19 Status: Acute Assessment and Plan: Patient has been started on dexamethasone. Multifactorial respiratory failure with imaging not suggestive of primary COVID-19 pneumonia (4) Encephalopathy: Code(s): G93.40 - Encephalopathy, unspecified Status: Acute Assessment and Plan: Multifactorial toxic metabolic encephalopathy secondary to IV and other drug abuse. Elevated ammonia level Head CT was negative Currently sedated for mechanical ventilation Lactulose ordered for elevated ammonia (5) Increased ammonia level: Code(s): R79.89 - Other specified abnormal findings of blood chemistry Status: Acute Assessment and Plan: Lactulose ordered (6) Polysubstance abuse: Code(s): F19.10 - Other psychoactive substance abuse, uncomplicated Status: Acute Assessment and Plan: Currently sedated and intubated Patient has IV drug abuse history Will screen for hepatitis and HIV (7) Alcoholism: Code(s): F10.20 - Alcohol dependence, uncomplicated Status: Acute Assessment and Plan: Thiamine and folic acid ordered (8) Cirrhosis: Code(s): K74.60 - Unspecified cirrhosis of liver Status: Acute Assessment and Plan: History of cirrhosis from alcohol abuse which is consistent with imaging She also has hepatic encephalopathy Paracentesis ordered IV albumin ordered (9) Sepsis: Code(s): A41.9 - Sepsis, unspecified organism Status: Acute Assessment and Plan: Procalcitonin Blood cultures ordered and pending Check sputum culture Empiric treatment for COVID , pneumonia with coverage for both community-acquired and aspiration (10) Congestive heart failure: Code(s): I50.9 - Heart failure, unspecified Status: Acute Assessment and Plan: Check echocardiogram Blood pressure soft and will hold diuretics at this time (11) Coagulopathy: Code(s): D68.9 - Coagulation defect, unspecified Status: Acute Assessment and Plan: Vitamin K ordered. Will order 2 units of FFP as IR requesting INR 1.5 or below for paracentesis Hold anticoagulation and re-evaluate in 24 hours (12) Thrombocytopenia: Code(s): D69.6 - Thrombocytopenia, unspecified Status: Acute Assessment and Plan: Likely secondary to cirrhosis Monitor and transfuse if needed (13) Hyponatremia: Code(s): E87.1 - Hypo-osmolality and hyponatremia Status: Acute Assessment and Plan: Likely secondary to cirrhosis and CHF. Patient has received normal saline bolus. Hold further IV fluids Free water restriction and use crystalloids for infusion Consult nephrology (14) Ascites: Code(s): R18.8 - Other ascites Status: Acute Assessment and Plan: Diagnostic and therapeutic paracentesis ordered Plan Management per mix crusher operator Subjective Date/time seen: 05/03/23 10:58 Interval history: Sedated and intubated Review of Systems Review of Systems: ROS unobtainable: Yes unobtainable due to endotracheal tube, unobtainable due to medical condition and unobtainable due to mental status Exam Narrative: General: Pt is sedated, intubated and on printing machine mechanic
[2023-05-03 12:53] LABS: Lactic Acid 2.7 mmol/L (0.7-2.0)
[2023-05-03] MEDS: FUROSEMIDE INJ 100 MG/10 ML VIAL 80 MG IV PUSH (15:19)
[2023-05-03] MEDS: SODIUM CHLORIDE 0.9% IV 250 ML 30 ML IV CONT (15:24)
[2023-05-03 17:14] LABS: Glucose Point of Care 105 mg/dl (65-105)
[2023-05-03] MEDS: BUMETANIDE INJ 1 MG/4 ML VIAL IV PUSH (21:30)
[2023-05-03] MEDS: ROCURONIUM BROMIDE 50 MG/5 ML VIAL 40 MG IV PUSH (22:32)
[2023-05-03] MEDS: CISATRACURIUM BESYLATE 200 MG in DEXTROSE 5% 80 ML IV CONT (22:41)
--- NOTE | 2023-05-03 23:06 | P.PNCROSS_ITS ---
Event Note Event Note Event Note: The patient began desatting around 20:30. When it to evaluate the patient. [facility] staff told me the patient had not had much urine output after she received Lasix earlier in the day. She is also receiving albumin. She is not on additional IV fluids beyond the fluids that she is getting for her sedation infusions. Patient desatted down into the 50s. Patient was resuscitated with bagged respirations. The patient was placed back on the ventilator in peep was increased to 12. One dose of Bumex was given at the same time as the patient was receiving her scheduled albumin. Despite Bumex administration the patient had essentially no urine output. Patient was suctioned multiple times in continues to get a large amount of serous fluid from her ET tube. The patient's oxygen saturations did improve when we elevated the head of the bed to 40? as well. However, approximately 2 hours later the patient began to desaturate again. We went in for re-evaluation. The patient was suctioned and again desatted but saturations improved after Ambu bag ventilation. When the patient was placed back on the ventilator she again was desatting into the mid 80s. During this time. The patient did have some retractions noted in seemed to be labored but was not dyssynchronous with the vent. The patient received 1 dose of rocuronium but oxygen saturations remained below between 86 and 87%. Subsequently increase the patient's PEEP to 14. I did discuss the patient's case with the circuit court clerk who agreed at this time have be in the patient's best interest to prone the patient for improved oxygenation. Also and Nimbex drip has been ordered and will be titrated per protocol. 90 minute spent in critical care activities. Due to a high probability of clinically significant, life threatening deterioration, the patient required my highest level of preparedness to interv camila emergently and I personally spent this critical care time directly and personally managing the patient. This critical care time included obtaining a history; examining the patient; pulse oximetry; ordering and review of studies; arranging urgent treatment with development of a management plan; evaluation of patient's response to treatment; frequent reassessment; and discussions with other providers. It was exclusive of separately billable procedures and treating other patients and teaching time. Please see Assessment and Plan section and the rest of the note for further information on patient assessment and treatment.
[2023-05-03 23:39] LABS: Glucose Point of Care 123 mg/dl (65-105)
--- NOTE | 2023-05-03 23:47 | PCRCNOTE ---
Pt proned at 3599
[2023-05-04] VITALS (111 sets, daily range): BP systolic 76–133; BP diastolic 44–97; PULSE 79–118; RESP 18–28; TEMP 35.4–37.7; O2SAT 81–100
[2023-05-04] MEDS: CISATRACURIUM BESYLATE 20 MG/10 ML VIAL 7.3 MG IV PUSH (00:40)
[2023-05-04] MEDS: PIPERACILLIN/TAZ 4.5G/NS 100ML 4.5 GM/100 ML BAG IVPB ×2 (01:00→06:33)
[2023-05-04] MEDS: ALBUMIN HUMAN 25% 25 GM/100 ML 100 ML IVPB ×4 (03:55→21:42)
[2023-05-04 04:19] LABS: Base Excess ABG -4.4 mEq/l (+/-2.0); Carboxyhemoglobin 0.2 % THb (0-2.0); Fractional Inspired Oxygen 100 %; HCO3 ABG 22.5 mEq/l (22.0-26.0); Methemoglobin ABG 0.6 %THb (0-1.5); Oxygen Content ABG 13.6 %vol (16.0-22.0); Oxygen Saturation ABG 99.6 % (95.0-100.0); Oxyhemoglobin 97.9 % THb (90.0-100.0); PCO2 ABG 50.5 mmHg (35.0-45.0); PO2 ABG 295.5 mmHg (80.0-100.0); PO2 FiO2 Ratio Arterial Blood 2.95 %; Reduced Hemoglobin 1.3 %THb (0-5.0); Total Hemoglobin 9.3 g/dL (12.0-18.0)
[2023-05-04 04:22] LABS: Arterial Blood Gas Vent Mode CMV; Arterial Blood Gas Ventilator rate 20 /MIN; Device VENTILATOR; Modified Allen's Test Pass; Site Drawn RIGHT RADIAL; pH ABG 7.267 (7.350-7.450)
[2023-05-04 04:23] LABS: Arterial Blood Gas PEEP 14 cmH2O; Arterial Blood Gas Tidal Volume 340 ml
[2023-05-04] MEDS: MIDAZOLAM 100MG/NS 100ML(*CRX) 100 MG/100 ML BAG IV CONT (05:19)
[2023-05-04] MEDS: CENTRAL LINE FLUSH 10 ML IV PUSH ×4 (05:19→21:43)
[2023-05-04 05:21] LABS: Hematocrit 22.3 % (37.0-47.0); Hemoglobin 7.5 g/dL (12.0-15.0); Mean Corpuscular HGB Conc 33.6 g/dl (32-36); Mean Corpuscular Hemoglobin 34.4 pg (26-34); Mean Corpuscular Volume 102.3 fl (80-100); Mean Platelet Volume 11.6 fl (7.4-10.4); Platelet Count Result 100 k/mm3 (150-375); Red Blood Count 2.18 M/mm3 (4.2-5.4); Red Cell Distribution Width 17.7 % (11.5-14.5); White Blood Count 16.4 K/mm3 (4.5-10.0)
[2023-05-04 05:30] LABS: Ammonia 56 umol/L (9-30)
[2023-05-04 05:31] LABS: Alanine Aminotransferase 18 U/L (6-35); Albumin Level 2.9 g/dL (3.5-5.1); Alkaline Phosphatase 61 U/L (38-126); Anion Gap 7 mmol/L (8-16); Aspartate Amino Transferase 53 U/L (14-36); Bilirubin,Total 1.7 mg/dL (0.2-1.3); Blood Urea Nitrogen 15 mg/dL (7-17); Calcium 7.7 mg/dL (8.4-10.2); Carbon Dioxide 23 mmol/L (22-30); Chloride 99 mmol/L (98-107); Estimated CRCL calculation 33 ml/min; Estimated Glomerular Filt Rate 41; Glucose 141 mg/dL (65-110); Potassium 4.6 mmol/L (3.4-5.0); Sodium 129 mmol/L (137-145)
[2023-05-04 06:58] LABS: Folic Acid 7.6 ng/mL (2.76->20); Vitamin B12 > 1000.0 pg/mL (239-931)
[2023-05-04 08:16] LABS: Glucose Point of Care 170 mg/dl (65-105)
[2023-05-04] MEDS: AZITHROMYCIN 500 MG/NS 250 ML 500 MG/250 ML BAG 250 MG IVPB (09:16)
[2023-05-04] MEDS: LACTULOSE 20 GM/30 ML UDC FEED TUBE ×2 (09:16→16:44)
[2023-05-04] MEDS: SODIUM CHLORIDE 500 MG TABLET PO ×2 (09:17→16:44)
[2023-05-04] MEDS: PANTOPRAZOLE SODIUM IV 40 MG VIAL IV PUSH (09:17)
[2023-05-04] MEDS: DEXAMETHASONE SOD PHOS INJ 4 MG/ML VIAL 6 MG IV PUSH (09:18)
[2023-05-04] MEDS: THIAMINE HCL 200 MG/2 ML VIAL 100 MG IV PUSH (09:18)
[2023-05-04] MEDS: MINERAL OIL/WHITE PETROLATUM OINTMENT 1 APPLIC EACH EYE ×2 (09:19→21:44)
[2023-05-04] MEDS: FOLIC ACID 1 MG/0.2 ML INJ IV PUSH (09:19)
[2023-05-04] MEDS: FENTANYL 2,500MCG/NS250ML(*CRX 2,500 MCG/250 ML BAG 10 MCG IV CONT (09:21)
[2023-05-04] MEDS: NOREPINEPHRINE 8 MG/D5W 250 ML 8 MG/250 ML BAG 9.38 MG IV CONT ×2 (10:59→13:22)
[2023-05-04 11:06] LABS: Glucose Point of Care 137 mg/dl (65-105)
--- NOTE | 2023-05-04 11:14 | PCNFU ---
Nutrition Follow-Up Complete: Inadequate energy intake related to mechanical ventilation as evidenced by need for full tube feeding Goal: Tolerate tube feeding at goal rate Meet estimated nutrition needs Patient has limited progress towards goal. We will continue current goal. Pt current nutrition is NPO Last recorded weight is 56.8 kg. Bowel Motility:No BM reported. Labs Reviewed:Glu 141, Cr 1.7,Na 129 Meds Noted:Lactulose, Zosyn, Versed, Fentanyl, Remdesivir, Decadron, Thiamine, Zithromax, Levophed. Skin: WNL Additional Notes: Patient remains on mechanical vent, proned at this time. COVID+. Tube feedings on hold. Tube feeding recommendations: Vital AF 1.2 goal rate at 50 ml/hr. Flush 30 ml q 4 hours. Monitoring medications, tolerance, labs, weights, skin, plan of care Follow daily in ICU, reassess Wednesday and Wednesday.
[2023-05-04 11:16] LABS: Alanine Aminotransferase 16 U/L (6-35); Estimated CRCL calculation 27 ml/min; Estimated Glomerular Filt Rate 33
[2023-05-04 11:18] LABS: INR 2.4; Prothrombin Time 28.2 Seconds (11.1-14.7)
[2023-05-04] MEDS: REMDESIVIR 200 MG/NS 250 ML 200 MG/250 ML BAG 250 MG IVPB (11:46)
--- NOTE | 2023-05-04 11:47 | PM.IMPN ---
Progress Note: A&P Assessment and Plan (1) Acute respiratory failure: Code(s): J96.00 - Acute respiratory failure, unspecified whether with hypoxia or hypercapnia Status: Acute Assessment and Plan: Multifactorial acute respiratory failure secondary to combination of congestive heart failure and pulmonary edema, pneumonia which could be community-acquired or aspiration. Patient also tested positive for COVID Currently intubated and sedated Empiric antibiotic coverage with Rocephin and azithromycin Dexamethasone for COVID-19 Blood and sputum culture (2) Pneumonia: Code(s): J18.9 - Pneumonia, unspecified organism Status: Acute Assessment and Plan: See above (3) COVID: Code(s): U07.1 - COVID-19 Status: Acute Assessment and Plan: Patient has been started on dexamethasone, remdesivir Multifactorial respiratory failure with imaging not suggestive of primary COVID-19 pneumonia (4) Encephalopathy: Code(s): G93.40 - Encephalopathy, unspecified Status: Acute Assessment and Plan: Multifactorial toxic metabolic encephalopathy secondary to IV and other drug abuse. Elevated ammonia level Head CT was negative Currently sedated for mechanical ventilation Lactulose ordered for elevated ammonia (5) Increased ammonia level: Code(s): R79.89 - Other specified abnormal findings of blood chemistry Status: Acute Assessment and Plan: Lactulose ordered (6) Polysubstance abuse: Code(s): F19.10 - Other psychoactive substance abuse, uncomplicated Status: Acute Assessment and Plan: Currently sedated and intubated Patient has IV drug abuse history Will screen for hepatitis and HIV (7) Alcoholism: Code(s): F10.20 - Alcohol dependence, uncomplicated Status: Acute Assessment and Plan: Thiamine and folic acid ordered (8) Cirrhosis: Code(s): K74.60 - Unspecified cirrhosis of liver Status: Acute Assessment and Plan: History of cirrhosis from alcohol abuse which is consistent with imaging She also has hepatic encephalopathy Paracentesis ordered IV albumin ordered (9) Sepsis: Code(s): A41.9 - Sepsis, unspecified organism Status: Acute Assessment and Plan: Procalcitonin Blood cultures ordered and pending Check sputum culture Empiric treatment for COVID , pneumonia with coverage for both community-acquired and aspiration (10) Congestive heart failure: Code(s): I50.9 - Heart failure, unspecified Status: Acute Assessment and Plan: Check echocardiogram Blood pressure soft and will hold diuretics at this time (11) Coagulopathy: Code(s): D68.9 - Coagulation defect, unspecified Status: Acute Assessment and Plan: Vitamin K ordered. Will order 2 units of FFP as IR requesting INR 1.5 or below for paracentesis Hold anticoagulation and re-evaluate in 24 hours (12) Thrombocytopenia: Code(s): D69.6 - Thrombocytopenia, unspecified Status: Acute Assessment and Plan: Likely secondary to cirrhosis Monitor and transfuse if needed (13) Hyponatremia: Code(s): E87.1 - Hypo-osmolality and hyponatremia Status: Acute Assessment and Plan: Likely secondary to cirrhosis and CHF. Patient has received normal saline bolus. Hold further IV fluids Free water restriction and use crystalloids for infusion Consult nephrology (14) Ascites: Code(s): R18.8 - Other ascites Status: Acute Assessment and Plan: Diagnostic and therapeutic paracentesis ordered Plan Management per l d rn Subjective Date/time seen: 05/04/23 11:47 Interval history: Is sedated and intubated Review of Systems Review of Systems: ROS unobtainable: Yes unobtainable due to endotracheal tube, unobtainable due to medical condition and unobtainable due to mental status Exam Narrative: General: Pt is sedated, intubate
[2023-05-04 12:24] LABS: Alveolar/Arterial O2 Gradient 312.1 mmHg; Base Excess ABG -3.6 mEq/l (+/-2.0); Carboxyhemoglobin 0.2 % THb (0-2.0); Fractional Inspired Oxygen 70 %; HCO3 ABG 21.9 mEq/l (22.0-26.0); Methemoglobin ABG 0.5 %THb (0-1.5); Oxygen Content ABG 10.4 %vol (16.0-22.0); Oxygen Saturation ABG 98.7 % (95.0-100.0); PCO2 ABG 41.5 mmHg (35.0-45.0); PO2 ABG 142.4 mmHg (80.0-100.0); PO2 FiO2 Ratio Arterial Blood 2.03 %; Reduced Hemoglobin 2.3 %THb (0-5.0)
[2023-05-04 12:25] LABS: Device VENTILATOR; Modified Allen's Test Pass; Site Drawn RIGHT RADIAL; Total Hemoglobin 7.4 g/dL (12.0-18.0)
[2023-05-04 12:26] LABS: Arterial Blood Gas PEEP 12 cmH2O; Arterial Blood Gas Tidal Volume 320 ml; Arterial Blood Gas Vent Mode CMV; Arterial Blood Gas Ventilator rate 28 /MIN
--- NOTE | 2023-05-04 12:38 | WPDINTPN ---
Progress Note: A&P Assessment and Plan (1) Acute respiratory failure: Code(s): J96.00 - Acute respiratory failure, unspecified whether with hypoxia or hypercapnia Status: Acute Assessment and Plan: Multifactorial acute respiratory failure secondary to combination of congestive heart failure and pulmonary edema, pneumonia which could be community-acquired or aspiration. Patient also tested positive for COVID -ARDS physiology, low tidal volume and high PEEP strategy -P/F ratio of 295 -ABGs and chest x-ray reviewed, ventilator adjusted by decreasing tidal volume to prevent volu- trauma , peep of 12 -wean FiO2 to maintain O2 sats greater than 92% -antibiotics switched to ceftriaxone azithromycin and vancomycin (patient was on Zosyn and azithromycin) -Dexamethasone for COVID-19 -will start Remdesivir for COVID-19 -check CRP in the morning, if it is elevated greater than 7.5, may give patient tocilizumab or baricitinib -05/02 blood cultures: Preliminary report is now -05/02 Sputum culture: Pending -05/02 MRSA screen: Pending -will diurese with Bumex (2) Pneumonia: Code(s): J18.9 - Pneumonia, unspecified organism Status: Acute Assessment and Plan: See above (3) COVID: Code(s): U07.1 - COVID-19 Status: Acute Assessment and Plan: Continue dexamethasone -will start Remdesivir -check CRP in a.m. -Multifactorial respiratory failure with imaging not suggestive of primary COVID-19 pneumonia (4) Encephalopathy: Code(s): G93.40 - Encephalopathy, unspecified Status: Acute Assessment and Plan: Multifactorial toxic metabolic encephalopathy secondary to IV and other drug abuse, hepatic encephalopathy. -Elevated ammonia level , continue lactulose -Head CT was negative -Currently sedated for mechanical ventilation (5) Increased ammonia level: Code(s): R79.89 - Other specified abnormal findings of blood chemistry Status: Acute Assessment and Plan: Continue lactulose (6) Polysubstance abuse: Code(s): F19.10 - Other psychoactive substance abuse, uncomplicated Status: Acute Assessment and Plan: Currently sedated and intubated -Patient has IV drug abuse history he admitted to recent IV drug use -HIV negative -hepatitis panel is negative (7) Alcoholism: Code(s): F10.20 - Alcohol dependence, uncomplicated Status: Acute Assessment and Plan: Continue Thiamine and folic acid (8) Cirrhosis: Code(s): K74.60 - Unspecified cirrhosis of liver Status: Acute Assessment and Plan: History of cirrhosis from alcohol abuse which is consistent with imaging She also has hepatic encephalopathy Paracentesis has been ordered Continue IV albumin (9) Sepsis: Code(s): A41.9 - Sepsis, unspecified organism Status: Acute Assessment and Plan: Procalcitonin is elevated 05/02: Preliminary blood cultures are negative 05/02: Sputum culture pending Empiric treatment for COVID , pneumonia with coverage for both community-acquired and aspiration (10) Congestive heart failure: Code(s): I50.9 - Heart failure, unspecified Status: Acute Assessment and Plan: Check echocardiogram Blood pressure soft and will hold diuretics at this time (11) Coagulopathy: Code(s): D68.9 - Coagulation defect, unspecified Status: Acute Assessment and Plan: Vitamin K ordered. Will order 2 units of FFP as IR requesting INR 1.5 or below for paracentesis Hold anticoagulation and re-evaluate in 24 hours (12) Thrombocytopenia: Code(s): D69.6 - Thrombocytopenia, unspecified Status: Acute Assessment and Plan: Likely secondary to cirrhosis -improving Monitor and transfuse if needed (13) Hyponatremia: Code(s): E87.1 - Hypo-osmolality and hyponatremia Status: Acute Assessment and Plan: Likely secondary to cirrhosis and CHF. Patient has receive
[2023-05-04] MEDS: cefTRIAXone 2 GM/NS 100 ML 2 GM/100 ML BAG IVPB (13:21)
[2023-05-04] MEDS: BUMETANIDE INJ 1 MG/4 ML VIAL IV PUSH (14:15)
[2023-05-04] MEDS: ALBUTEROL SULFATE NEB 2.5 MG/3 ML INH INHALATION ×2 (14:37→20:22)
--- NOTE | 2023-05-04 16:16 | PC.NURSE ---
1510- Placed patient in supine position , patient immediately dropped O2 sats to 50% , Pura R.T., bagged patient for 15minutes then attempted to place back on ventilator with 100% FiO2 , patient immediately began to desaturate again . Called Dr Sifuentes , he gave the order to place patient back in prone position until tomorrow and to call with any other issues or concerns.
[2023-05-04] MEDS: CISATRACURIUM BESYLATE 200 MG in DEXTROSE 5% 80 ML IV CONT (16:48)
[2023-05-04 18:48] LABS: Glucose Point of Care 271 mg/dl (65-105)
[2023-05-05] VITALS (95 sets, daily range): BP systolic 87–117; BP diastolic 54–80; PULSE 84–112; RESP 0–28; TEMP 35.6–37.3; O2SAT 85–100
[2023-05-05] MEDS: MIDAZOLAM 100MG/NS 100ML(*CRX) 100 MG/100 ML BAG IV CONT (02:28)
[2023-05-05] MEDS: ALBUTEROL SULFATE NEB 2.5 MG/3 ML INH INHALATION ×2 (02:55→08:36)
[2023-05-05] MEDS: ALBUMIN HUMAN 25% 25 GM/100 ML 100 ML IVPB ×2 (05:04→08:02)
[2023-05-05] MEDS: CENTRAL LINE FLUSH 10 ML IV PUSH (05:05)
[2023-05-05 05:06] LABS: Alveolar/Arterial O2 Gradient 519.1 mmHg; Base Excess ABG -5.5 mEq/l (+/-2.0); Carboxyhemoglobin 0.3 % THb (0-2.0); Fractional Inspired Oxygen 90 %; HCO3 ABG 21.8 mEq/l (22.0-26.0); Methemoglobin ABG 0.3 %THb (0-1.5); Oxygen Content ABG 10.2 %vol (16.0-22.0); Oxygen Saturation ABG 90.4 % (95.0-100.0); Oxyhemoglobin 90.2 % THb (90.0-100.0); PCO2 ABG 52.4 mmHg (35.0-45.0); PO2 ABG 68.9 mmHg (80.0-100.0); PO2 FiO2 Ratio Arterial Blood 0.77 %; Reduced Hemoglobin 9.2 %THb (0-5.0)
[2023-05-05 05:08] LABS: Device VENTILATOR; Modified Allen's Test Pass; Site Drawn RIGHT RADIAL; pH ABG 7.236 (7.350-7.450)
[2023-05-05 05:09] LABS: Arterial Blood Gas PEEP 12 cmH2O; Arterial Blood Gas Tidal Volume 320 ml; Arterial Blood Gas Vent Mode CMV; Arterial Blood Gas Ventilator rate 26 /MIN
[2023-05-05 05:14] LABS: Hematocrit 21.2 % (37.0-47.0); Immature Platelet Fraction Pct 9.6 % (0.9-11.2); Mean Corpuscular HGB Conc 32.1 g/dl (32-36); Mean Corpuscular Hemoglobin 33.8 pg (26-34); Mean Corpuscular Volume 105.5 fl (80-100); Mean Platelet Volume 11.5 fl (7.4-10.4); Platelet Count Result 86 k/mm3 (150-375); Red Blood Count 2.01 M/mm3 (4.2-5.4); Red Cell Distribution Width 17.4 % (11.5-14.5); White Blood Count 15.4 K/mm3 (4.5-10.0)
[2023-05-05 05:18] LABS: Hemoglobin 6.8 g/dL (12.0-15.0)
[2023-05-05 05:19] LABS: Ammonia 88 umol/L (9-30)
[2023-05-05 05:21] LABS: INR 2.5; Prothrombin Time 29.1 Seconds (11.1-14.7); Sodium 133 mmol/L (137-145)
[2023-05-05 05:27] LABS: Alanine Aminotransferase 16 U/L (6-35); Albumin Level 3.6 g/dL (3.5-5.1); Alkaline Phosphatase 39 U/L (38-126); Anion Gap 12 mmol/L (8-16); Aspartate Amino Transferase 39 U/L (14-36); Bilirubin,Total 1.2 mg/dL (0.2-1.3); Blood Urea Nitrogen 22 mg/dL (7-17); CRP 4.3 mg/dL (<1.0); Calcium 7.4 mg/dL (8.4-10.2); Carbon Dioxide 22 mmol/L (22-30); Chloride 99 mmol/L (98-107); Estimated CRCL calculation 22 ml/min; Estimated Glomerular Filt Rate 26; Glucose 213 mg/dL (65-110); Potassium 4.2 mmol/L (3.4-5.0)
[2023-05-05 07:04] LABS: Glucose Point of Care 215 mg/dl (65-105)
[2023-05-05] MEDS: LACTULOSE 20 GM/30 ML UDC 30 GM FEED TUBE (08:03)
[2023-05-05] MEDS: FOLIC ACID 1 MG/0.2 ML INJ IV PUSH (08:03)
[2023-05-05] MEDS: DEXAMETHASONE SOD PHOS INJ 4 MG/ML VIAL 6 MG IV PUSH (08:04)
[2023-05-05] MEDS: PANTOPRAZOLE SODIUM IV 40 MG VIAL IV PUSH (08:05)
[2023-05-05] MEDS: THIAMINE HCL 200 MG/2 ML VIAL 100 MG IV PUSH (08:05)
[2023-05-05] MEDS: MINERAL OIL/WHITE PETROLATUM OINTMENT 1 APPLIC EACH EYE (08:05)
[2023-05-05] MEDS: SODIUM CHLORIDE 500 MG TABLET PO (08:05)
[2023-05-05 08:25] LABS: Creatine Kinase 46 U/L (30-135)
[2023-05-05] MEDS: PHYTONADIONE ADULT INJ 10 MG in DEXTROSE 5% IN WATER 50 ML 100 MG IVPB (09:25)
[2023-05-05] MEDS: rifAXIMin 550 MG TABLET PO (09:25)
[2023-05-05] MEDS: AZITHROMYCIN 500 MG/NS 250 ML 500 MG/250 ML BAG 250 MG IVPB (09:27)
--- NOTE | 2023-05-05 09:59 | WPDINTPN ---
Progress Note: A&P Assessment and Plan (1) Acute respiratory failure: Code(s): J96.00 - Acute respiratory failure, unspecified whether with hypoxia or hypercapnia Status: Acute Assessment and Plan: Multifactorial acute respiratory failure secondary to combination of congestive heart failure and pulmonary edema, pneumonia which could be community-acquired or aspiration. Patient also tested positive for COVID -ARDS physiology, low tidal volume and high PEEP strategy -P/F ratio of 295 -ABGs and chest x-ray reviewed, ventilator adjusted by decreasing tidal volume to prevent volu- trauma , peep of 12 -wean FiO2 to maintain O2 sats greater than 92% -continue ceftriaxone azithromycin and vancomycin (patient was on Zosyn and azithromycin) -Dexamethasone for COVID-19 -continue Remdesivir for COVID-19 -CRP this morning is 4.3 -05/02 blood cultures: Negative x2 -05/02 Sputum culture: Gram-positive cocci in pairs, Yeast -05/02 MRSA screen: Negative -patient did not respond to Bumex (2) Pneumonia: Code(s): J18.9 - Pneumonia, unspecified organism Status: Acute Assessment and Plan: See above (3) COVID: Code(s): U07.1 - COVID-19 Status: Acute Assessment and Plan: Continue dexamethasone -continue Remdesivir -05/05 CRP 4.3 -Multifactorial respiratory failure with imaging not suggestive of primary COVID-19 pneumonia (4) Encephalopathy: Code(s): G93.40 - Encephalopathy, unspecified Status: Acute Assessment and Plan: Multifactorial toxic metabolic encephalopathy secondary to IV and other drug abuse, hepatic encephalopathy. -Elevated ammonia level , continue lactulose, add added rifaximin -Head CT was negative -Currently sedated for mechanical ventilation (5) Increased ammonia level: Code(s): R79.89 - Other specified abnormal findings of blood chemistry Status: Acute Assessment and Plan: Continue lactulose, added rifaximin (6) Polysubstance abuse: Code(s): F19.10 - Other psychoactive substance abuse, uncomplicated Status: Acute Assessment and Plan: Currently sedated and intubated -Patient has IV drug abuse history he admitted to recent IV drug use -urine drug screen was positive for cannabinoids and methamphetamine -HIV negative -hepatitis panel is negative (7) Alcoholism: Code(s): F10.20 - Alcohol dependence, uncomplicated Status: Acute Assessment and Plan: Continue Thiamine and folic acid (8) Cirrhosis: Code(s): K74.60 - Unspecified cirrhosis of liver Status: Acute Assessment and Plan: History of cirrhosis from alcohol abuse which is consistent with imaging She also has hepatic encephalopathy She is too unstable for paracentesis at this time Continue IV albumin volume expansion (9) Sepsis: Code(s): A41.9 - Sepsis, unspecified organism Status: Acute Assessment and Plan: Procalcitonin is elevated 05/02: Preliminary blood cultures are negative 05/02: Sputum culture growing gram-positive cocci in pairs Continue antibiotics as above (10) Congestive heart failure: Code(s): I50.9 - Heart failure, unspecified Status: Acute Assessment and Plan: Check echocardiogram Blood pressure soft and will hold diuretics at this time (11) Coagulopathy: Code(s): D68.9 - Coagulation defect, unspecified Status: Acute Assessment and Plan: Vitamin K ordered. Will transfuse 1 unit of FFP Hold anticoagulation and re-evaluate in 24 hours (12) Thrombocytopenia: Code(s): D69.6 - Thrombocytopenia, unspecified Status: Acute Assessment and Plan: Likely secondary to cirrhosis -stable Monitor and transfuse if needed (13) Hyponatremia: Code(s): E87.1 - Hypo-osmolality and hyponatremia Status: Acute Assessment and Plan: Likely secondary to cirrhosis and CHF. Patient has received normal saline bolus.
[2023-05-05 10:30] LABS: Creatinine Urine 111.7 mg/dL
[2023-05-05 10:34] LABS: Potassium Urine Random 47.3 meq/L; Sodium Urine Random 7 meq/L
[2023-05-05 11:01] LABS: Eosinophil Urine None Seen % (None Seen); Urine Eos QC 2nd Tech Confirmed
--- NOTE | 2023-05-05 11:08 | P.CDI_ITS ---
CDI Query Clarification Request Elevated BNP on 05/02/23. CHF noted in the assessment and plan. Patient has received Lasix and Bumex. Pulmonary edema noted on 05/03 chest xray. Please specify type and acuity of heart failure if known. * Acute * Chronic * Acute on Chronic * Unknown * Systolic * Diastolic * Combined Systolic and Diastolic * Unknown <Ariella Flores RN - Last Filed: 05/05/23 11:11> Clarified Diagnosis Clarified Diagnosis: unknown <Jeanie Abel DO - Last Filed: 05/10/23 12:43>
[2023-05-05] MEDS: FENTANYL 2,500MCG/NS250ML(*CRX 2,500 MCG/250 ML BAG 7.5 MCG IV CONT (11:15)
[2023-05-05] MEDS: REMDESIVIR 100 MG/NS 250 ML 100 MG/250 ML BAG 250 MG IVPB (11:17)
[2023-05-05] MEDS: SODIUM CHLORIDE 0.9% IV 250 ML 30 ML IV CONT (11:17)
[2023-05-05] MEDS: cefTRIAXone 2 GM/NS 100 ML 2 GM/100 ML BAG IVPB (11:17)
--- NOTE | 2023-05-05 11:32 | PCFNICU ---
ICU Rounding Note: Pt current nutrition is NPO. Last recorded weight is 62 kg. Bowel Motility: No BM reported at this time. Labs Reviewed:Glu 213, Cr 2.10,GFR 26, Na 133, Hct 21.2, Hgb 6.8 Meds Noted:Decadron, Remdesivir, Versed, Nimbex, Fentanyl Skin:WNL Additional Notes: Patient had been proned and plans to flip to supine. Getting blood today. No nutrition at this time. Recommend tube feedings of Vital AF 1.2 goal rate at 50ml/hr. Flush 30 ml q 4 hours. Discussions regarding possible dialysis catheter-nephrology consult. Monitoring: Follow daily in ICU and reassess Wednesday and Wednesday.
[2023-05-05 12:08] LABS: Glucose Point of Care 271 mg/dl (65-105)
[2023-05-05 14:41] LABS: Osmolality, Urine 181 mOsm/kg (50-1200)
[2023-05-11 12:44] LABS: Chloride Rand Ur <20 mmol/L (32-290); Creatinine Random Urine 101 mg/dL (20-275)
--- NOTE | 2023-05-19 09:57 | PM.TDS ---
Transfer Discharge Sum: Prov Provider Date of admission: 05/03/23 09:10 Primary care physician: Edilia Angulo, PA Admitting clinician: Fadi Groves MD Consults: 05/03/23 Consult to Physician Routine Comment: Consulting Provider: Kedar Walker call center receptionist/MD group to consult: [employer] Reason for consultation: Respiratory failure Has provider been notified: Yes DS: Admitting Diagnosis Discharge Date 05/05/23 Admitting Diagnosis Shortness of breath DS: Discharge Diagnosis Discharge Diagnosis (1) Acute respiratory failure: Code(s): J96.00 - Acute respiratory failure, unspecified whether with hypoxia or hypercapnia Status: Acute Assessment and Plan: Multifactorial acute respiratory failure secondary to combination of congestive heart failure and pulmonary edema, pneumonia which could be community-acquired or aspiration. Patient also tested positive for COVID -ARDS physiology, low tidal volume and high PEEP strategy -P/F ratio of 295 -ABGs and chest x-ray reviewed, ventilator adjusted by decreasing tidal volume to prevent volu- trauma , peep of 12 -wean FiO2 to maintain O2 sats greater than 92% -continue ceftriaxone azithromycin and vancomycin (patient was on Zosyn and azithromycin) -Dexamethasone for COVID-19 -continue Remdesivir for COVID-19 -CRP this morning is 4.3 -05/02 blood cultures: Negative x2 -05/02 Sputum culture: Gram-positive cocci in pairs, Yeast -05/02 MRSA screen: Negative -patient did not respond to Bumex (2) Pneumonia: Code(s): J18.9 - Pneumonia, unspecified organism Status: Acute Assessment and Plan: See above (3) COVID: Code(s): U07.1 - COVID-19 Status: Acute Assessment and Plan: Continue dexamethasone -continue Remdesivir -05/05 CRP 4.3 -Multifactorial respiratory failure with imaging not suggestive of primary COVID-19 pneumonia (4) Encephalopathy: Code(s): G93.40 - Encephalopathy, unspecified Status: Acute Assessment and Plan: Multifactorial toxic metabolic encephalopathy secondary to IV and other drug abuse, hepatic encephalopathy. -Elevated ammonia level , continue lactulose, add added rifaximin -Head CT was negative -Currently sedated for mechanical ventilation (5) Increased ammonia level: Code(s): R79.89 - Other specified abnormal findings of blood chemistry Status: Acute Assessment and Plan: Continue lactulose, added rifaximin (6) Polysubstance abuse: Code(s): F19.10 - Other psychoactive substance abuse, uncomplicated Status: Acute Assessment and Plan: Currently sedated and intubated -Patient has IV drug abuse history he admitted to recent IV drug use -urine drug screen was positive for cannabinoids and methamphetamine -HIV negative -hepatitis panel is negative (7) Alcoholism: Code(s): F10.20 - Alcohol dependence, uncomplicated Status: Acute Assessment and Plan: Continue Thiamine and folic acid (8) Cirrhosis: Code(s): K74.60 - Unspecified cirrhosis of liver Status: Acute Assessment and Plan: History of cirrhosis from alcohol abuse which is consistent with imaging She also has hepatic encephalopathy She is too unstable for paracentesis at this time Continue IV albumin volume expansion (9) Sepsis: Code(s): A41.9 - Sepsis, unspecified organism Status: Acute Assessment and Plan: Procalcitonin is elevated 05/02: Preliminary blood cultures are negative 05/02: Sputum culture growing gram-positive cocci in pairs Continue antibiotics as above (10) Congestive heart failure: Code(s): I50.9 - Heart failure, unspecified Status: Acute Assessment and Plan: Check echocardiogram Blood pressure soft and will hold diuretics at this time (11) Coagulopathy: Code(s): D68.9 - Coagulation defect, unspecified Status: Acute Assessment and Plan:
== END 2023-05-05 14:44 | disposition short-term general hospital (02) | DRG 137 ==
LOC: ANHED 10:33 → ANHIMU 11:03 → ANHICU 05-03 03:32 → ANHIMU 05-03 05:51 → ANHICU 05-03 05:57
PROVIDERS: Hospitalist; Internal Medicine; Nurse Practitioner; Admitting Provider Internal Medicine; Emergency Provider Student in an Organized Health Care Education/Training Program; PCP Physician Assistant; Visit Provider Student in an Organized Health Care Education/Training Program
DX: U07.1 COVID-19 (principal); J96.01 Acute respiratory failure with hypoxia; R65.21 Severe sepsis with septic shock; A41.9 Sepsis, unspecified organism; G92.8 Other toxic encephalopathy; J18.9 Pneumonia, unspecified organism; D68.9 Coagulation defect, unspecified; D69.6 Thrombocytopenia, unspecified; K70.31 Alcoholic cirrhosis of liver with ascites; K76.82 Hepatic encephalopathy; N17.9 Acute kidney failure, unspecified; I50.9 Heart failure, unspecified; E87.1 Hypo-osmolality and hyponatremia; D64.9 Anemia, unspecified; K86.1 Other chronic pancreatitis; N39.0 Urinary tract infection, site not specified; F10.20 Alcohol dependence, uncomplicated; F41.9 Anxiety disorder, unspecified; F12.90 Cannabis use, unspecified, uncomplicated; F15.90 Other stimulant use, unspecified, uncomplicated; F16.90 Hallucinogen use, unspecified, uncomplicated
CPT/HCPCS: 36415; 36430; 36600; 70450; 71045; 71275; 74177; 76775; 80048; 80053; 80074; 80307; 81001; 81025; 82040; 82140; 82375; 82436; 82550; 82565; 82570; 82607; 82746; 82805; 82948; 83050; 83605; 83615; 83690; 83735; 83880; 83935; 84133; 84145; 84300; 84443; 84460; 84484; 85025; 85027; 85055; 85380; 85610; 85730; 85999; 86140; 86703; 86850; 86900; 86901; 86923; 87040; 87070; 87081; 87205; 87636; 93005; 94002; 94003; 94640; 96361; 96365; 96366; 96367; 96375; 96376; 99285; A9270; C1751; C9113; G0378; G0379; G0432; J0248; J0330; J0456; J0613; J0696; J1100; J1836; J1940; J2060; J2250; J2543; J3010; J3370; J3411; J3430; J7030; J7050; J7120; P9016; P9017; P9047; Q9967